=== PATIENT | male | born 1990 | race Hispanic/Latino ===

== ENCOUNTER 2018-05-11 07:19 | Emergency (ER) | payer OTHER ==
[2018-05-11] MEDS ORDERED: TETANUS/DIPHTHERIA TOXOID [ADULT] 0.5 ML VIAL IM ONE (07:40)
[2018-05-11] MEDS ORDERED: LIDOCAINE HCL-MPF 1% 2ML VIAL ONE (07:59)
[2018-05-11] MEDS ORDERED: CEFAZOLIN SODIUM 1 GM VIAL ONE (08:43)
== END 2018-05-11 09:13 | disposition home or self-care (01) ==
LOC: EDH 07:19
DX: S61.214A Laceration without foreign body of right ring finger without damage to nail, initial encounter (principal); S51.811A Laceration without foreign body of right forearm, initial encounter; V48.5XXA Car driver injured in noncollision transport accident in traffic accident, initial encounter; Y93.89 Activity, other specified; Y92.89 Other specified places as the place of occurrence of the external cause; Y99.8 Other external cause status; Z72.0 Tobacco use
CPT/HCPCS: 12031; 12041; 73080; 73140; 90471; 90714; 96372; 99285; A4218; J0690; J3490